=== PATIENT | female | born 1965 | race Caucasian/White ===

== ENCOUNTER 2020-11-04 11:40 | Observation (INO) ==
[2020-11-04] MEDS ORDERED: Aspirin 81 MG TAB.CHEW PO ONE (12:03)
[2020-11-04] MEDS ORDERED: 0.9 % Sodium Chloride 500 ML IVC ONE (12:03)
[2020-11-04] MEDS ORDERED: *HR* Metoprolol 5 MG/5 ML VIAL IVP ONE (12:03)
[2020-11-04 12:30] LABS: Basophils % 0.5 %; Eosinophils % 0.1 %; Hematocrit 42.3 % (35.3-44.9); Hemoglobin 14.1 g/dL (11.5-15.4); Immature Granulocytes % 0.1 % (0-4); Lymphocytes % 13.3 %; Mean Corpuscular HGB Conc 33.3 g/dL (31.6-35.5); Mean Corpuscular Hemoglobin 30.1 pg (28.0-33.3); Mean Corpuscular Volume 90.2 fL (83.0-100.0); Mean Platelet Volume 10.4 fL (9.4-12.4); Monocytes # 0.4 K/mcL (0.0-1.3); Monocytes % 5.3 %; Neutrophils # 5.9 K/mcL (1.6-8.9); Platelet Count 309 K/mcL (140-400); Red Blood Count 4.69 M/mcL (3.82-4.97); Red Cell Distribution Width 12.8 % (11.5-14.5); Segmented Neutrophils % 80.7 %; White Blood Count 7.3 K/mcL (4.3-11.1)
[2020-11-04 12:42] LABS: Prothrombin Time 11.9 Seconds (9.4-12.1)
[2020-11-04 12:45] LABS: Activated Partial Thrombo Time 31.6 Seconds (26.0-36.0)
[2020-11-04 12:51] LABS: BUN/Creatinine Ratio 15 (6-26); Blood Urea Nitrogen 12 mg/dL (6-20); Calcium 9.6 mg/dL (8.6-10.3); Carbon Dioxide 24 mEq/L (23-29); Chloride 105 mEq/L (98-107); Glucose 114 mg/dL (70-105); Osmolality,Calculated 287 (280-300); Potassium 4.5 mEq/L (3.5-5.1); Sodium 138 mEq/L (136-145); Troponin I < 0.03 ng/mL (< 0.04); eGFR For African Americans > 60 (> 60); eGFR For Non-African Americans > 60 (> 60)
[2020-11-04] MEDS ORDERED: *HR* HYDROcodone/Acet 5/325 mg TABLET PO PRN (13:49)
[2020-11-04] MEDS ORDERED: Ondansetron 4 MG/2 ML VIAL IVP PRN (13:49)
[2020-11-04] MEDS ORDERED: Acetaminophen 325 MG TABLET PO PRN (13:49)
[2020-11-04] MEDS ORDERED: Naloxone 0.4 MG/ML INJ IVP PRN (13:49)
[2020-11-04] MEDS ORDERED: Sennosides/Docusate Sodium TABLET PO PRN (14:58)
[2020-11-04] MEDS ORDERED: Melatonin 3 MG TABLET PO PRN (14:58)
[2020-11-04 15:14] LABS: Troponin I < 0.03 ng/mL (< 0.04)
[2020-11-04 15:28] LABS: Thyroid Stimulating Hormone 1.476 mcIU/mL (0.340-5.600)
[2020-11-04] MEDS: Fluticasone Propionate Nasal 50 MCG/SPRAY BOTTLE NS SCH (15:53)
[2020-11-05 05:43] LABS: Basophils % 0.7 %; Eosinophils # 0.1 K/mcL (0.0-0.6); Eosinophils % 1.1 %; Hematocrit 41.8 % (35.3-44.9); Hemoglobin 13.5 g/dL (11.5-15.4); Immature Granulocytes % 0.2 % (0-4); Lymphocytes # 1.4 K/mcL (0.6-4.6); Lymphocytes % 24.2 %; Mean Corpuscular HGB Conc 32.3 g/dL (31.6-35.5); Mean Corpuscular Hemoglobin 29.9 pg (28.0-33.3); Mean Corpuscular Volume 92.5 fL (83.0-100.0); Mean Platelet Volume 10.7 fL (9.4-12.4); Monocytes # 0.5 K/mcL (0.0-1.3); Monocytes % 8.4 %; Neutrophils # 3.7 K/mcL (1.6-8.9); Platelet Count 279 K/mcL (140-400); Red Blood Count 4.52 M/mcL (3.82-4.97); Red Cell Distribution Width 12.9 % (11.5-14.5); Segmented Neutrophils % 65.4 %; White Blood Count 5.6 K/mcL (4.3-11.1)
[2020-11-05 05:49] LABS: INR 1.1; Prothrombin Time 12.2 Seconds (9.4-12.1)
[2020-11-05] MEDS ORDERED: *HR* Enoxaparin 40 MG/0.4 ML SYRINGE SQ SCH (06:00)
[2020-11-05] MEDS ORDERED: Regadenoson 0.4 MG/5 ML SYRINGE IVP ONE (06:26)
[2020-11-05 06:50] LABS: BUN/Creatinine Ratio 18 (6-26); Blood Urea Nitrogen 14 mg/dL (6-20); Calcium 9.1 mg/dL (8.6-10.3); Carbon Dioxide 26 mEq/L (23-29); Chloride 106 mEq/L (98-107); Chol/HDL Ratio 4.2 (0-4.9); Cholesterol 213 mg/dL (< 200); Glucose 89 mg/dL (70-105); HDL Cholesterol 51 mg/dL (40-59); LDL Cholesterol,Calculated 143 mg/dL (< 100); Magnesium 2.1 mg/dL (1.6-2.6); Osmolality,Calculated 286 (280-300); Phosphorous 2.5 mg/dL (2.7-4.5); Potassium 3.9 mEq/L (3.5-5.1); Sodium 138 mEq/L (136-145); Triglycerides 97 mg/dL (< 150); eGFR For African Americans > 60 (> 60); eGFR For Non-African Americans > 60 (> 60)
[2020-11-05] MEDS: Fluticasone Propionate Nasal 50 MCG/SPRAY BOTTLE NS SCH (08:55)
[2020-11-05] MEDS ORDERED: Loratadine 10 MG TABLET PO SCH (09:00)
[2020-11-05 09:28] LABS: Estimated Average Glucose 111 mg/dl; Hemoglobin A1C 5.5 %
[2020-11-05 10:44] VITALS: BP 128/80
== END 2020-11-05 14:40 | disposition home or self-care (01) ==
LOC: SUATTDRO → EMEROOARM 11:40 → 3BNU 11:40
PROVIDERS: ADMIT Internal Medicine; ATTEND Internal Medicine